=== PATIENT | female | born 1950 | race Caucasian/White ===

== ENCOUNTER 2018-11-21 09:30 | Emergency (ER) | payer MEDICARE ==
[2018-11-21 10:06] VITALS: BP 146/70
--- NOTE | 2018-11-21 10:25 | UC ---
Back Pain HPI - HPI Summary HPI Summary: 68-year-old female who lifted a bag of garbage yesterday and strained her right lower back. The daughter states she's also been having some nausea for one or 2 days but the back pain has caused that to worsen. There is one family member who has the "stomach bug". The patient has not had any vomiting. The patient states "I'm not drinking enough water" and she is urinating less than normal. She denies any burning on urination. Patient has a history of a stroke one year ago affecting her left side. - History of Current Complaint Chief Complaint: UCBackPain Stated Complaint: BACK PAIN Time Seen by Provider: 11/21/18 10:07 Hx Obtained From: Patient, Family/Electrician Supervisor ?: No Onset/Duration: Sudden Onset Timing: Constant Severity Initially: Moderate Severity Currently: Moderate Pain Intensity: 8 Character: Dull, Aching, Spasmodic Aggravating Factor(s): Movement, Lifting, Bending Alleviating Factor(s): Nothing Associated Signs And Symptoms: Negative: Weakness, Numbness, Tingling, Abdominal Pain, Flank Pain, Bladder Incontinence, Bowel Incontinence - Allergies/Home Medications Allergies/Adverse Reactions: Allergies Allergy/AdvReac Type Severity Reaction Status Date / Time No Known Allergies Allergy Verified 11/21/18 10:06 Home Medications: Home Medications Ascorbic Acid TAB* [Vitamin C TAB*] 500 mg PO DAILY 11/21/18 [History Confirmed 11/21/18] Aspirin 81 mg CHEW TAB* [Aspirin Low Dose TAB*] 81 mg PO DAILY 11/21/18 [ History Confirmed 11/21/18] Atorvastatin* [Lipitor*] 80 mg PO DAILY 11/21/18 [History Confirmed 11/21/18] FLUoxetine CAP* [PROzac CAP*] 20 mg PO DAILY 11/21/18 [History Confirmed ] Lisinopril TAB* [Prinivil TAB*] 2.5 mg PO DAILY 11/21/18 [History Confirmed ] metFORMIN* [Glucophage 1000 MG TAB *] 750 mg PO DAILY 11/21/18 [History Confirmed 11/21/18] PMH/Surg Hx/FS Hx/Imm Hx Previously Healthy: Yes Endocrine History: Diabetes Cardiovascular History: Hypertension Neurological History: CVA - CVA one year ago. - Surgical History Surgical History: Yes Surgery Procedure, Year, and Place: tonsilectomy - Family History Known Family History: Positive: Non-Contributory - Social History Occupation: Retired Alcohol Use: None Substance Use Type: None Smoking Status (MU): Former Smoker When Did the Patient Quit Smoking/Using Tobacco: 2017 Review of Systems All Other Systems Reviewed And Are Negative: Yes Genitourinary: Positive: Other - Decreased urination with past 24 hours to which patient attributes "I'm not drinking enough water". Musculoskeletal: Positive: Other: - Pain right lower back after lifting a bag of garbage yesterday afternoon. Is Patient Immunocompromised?: No Physical Exam Triage Information Reviewed: Yes Appearance: Well-Appearing, Well-Nourished, Pain Distress Vital Signs: Initial Vital Signs Temp 97.9 F 11/21/18 10:00 Pulse 76 11/21/18 10:00 Resp 20 11/21/18 10:00 BP 146/70 11/21/18 10:00 Pulse Ox 98 11/21/18 10:00 Vital Signs Reviewed: Yes Respiratory: Positive: Lungs clear, Normal breath sounds, No respiratory distress, No accessory muscle use Cardiovascular: Positive: RRR, No Murmur, Pulses Normal, Brisk Capillary Refill Abdomen Description: Positive: Nontender, No Organomegaly, Soft. Negative: CVA Tenderness (R), CVA Tenderness (L), Distended, Guarding, Hepatomegaly, Splenomegaly Bowel Sounds: Positive: Present Musculoskeletal: Positive: Strength Intact, ROM Intact, Other: - Pain on palpation to the right lower back paraspinal muscle area, spine is nontender. Neurological: Positive: Alert, Muscle Tone Normal Psychological Exam: Normal Skin Exam: Normal Back Pain Course/Dx - Course Course Of Treatment: Urinalysis: Positive for 2+ leukocytes I'm going to treat the patient for urinary tract infection with Macrobid 100 mg by mouth twice a day 7 days. Definite follow-up in the emergency room if she develops any fever, chills, increased back pain or inability to keep medicine down area and she was given a prescription for Zofran. The patient prefers only to continue Tylenol at home for her back pain because she is unable to tolerate ibuprofen and she refuses any muscle relaxant. - Differential Dx/Diagnosis Provider Diagnosis: Low back strain, UTI (urinary tract infection) Discharge ED - Sign-Out/Discharge Documenting (check all that apply): Patient Departure All imaging exams completed and their final reports reviewed: No Studies - Discharge Plan Condition: Fair Disposition: HOME Prescriptions: Nitrofurantoin Monohyd/M-Cryst [Macrobid 100 mg Capsule] 100 mg PO BID 7 Days # 14 cap Patient Education Materials: Urinary Tract Infection in Older Adults (ED) Referrals: Franklin Colunga MD [Primary Care Provider] - Additional Instructions: Increase fluids, follow-up with your primary care provider for recheck of urine in a proximally 10 days. Go to the emergency room if you develop fever, chills , vomiting and unable keep the medication down. Apply heat to the sore area or ice, whichever feels good. Continue to take Tylenol every 4 hours for pain as needed. Avoid movements that cause pain. - Billing Disposition and Condition Condition: FAIR Disposition: Home
[2018-11-21] MEDS ORDERED: Ondansetron TAB* 4 MG PO ONE (10:31)
[2018-11-21] MEDS ORDERED: Ondansetron ODT TAB* 4 MG PO ONE (10:36)
--- NOTE | 2018-11-22 09:12 | UC ---
Course/Dx - Diagnoses Provider Diagnoses: Low back strain, UTI (urinary tract infection) Discharge ED - Sign-Out/Discharge Documenting (check all that apply): Post-Discharge Follow Up - I meant to order Zofran for pt yesterday, but the RX did not go through, so ordered today. All imaging exams completed and their final reports reviewed: No Studies - Discharge Plan Condition: Fair Disposition: HOME Prescriptions: Nitrofurantoin Monohyd/M-Cryst [Macrobid 100 mg Capsule] 100 mg PO BID 7 Days # 14 cap Ondansetron TAB* [Zofran 4 MG Tab*] 4 mg PO Q6H PRN #10 tab PRN Reason: Nausea Patient Education Materials: Urinary Tract Infection in Older Adults (ED) Referrals: Franklin Colunga MD [Primary Care Provider] - Additional Instructions: Increase fluids, follow-up with your primary care provider for recheck of urine in a proximally 10 days. Go to the emergency room if you develop fever, chills , vomiting and unable keep the medication down. Apply heat to the sore area or ice, whichever feels good. Continue to take Tylenol every 4 hours for pain as needed. Avoid movements that cause pain. - Billing Disposition and Condition Condition: FAIR Disposition: Home
--- NOTE | 2018-11-23 07:15 | UC ---
- Progress Note Progress Note: Please advised patient that urine culture showed no growth. She can discontinue use of macrobid. (Seen for low back strain, had white cells in urine.). Course/Dx - Diagnoses Provider Diagnoses: Low back strain, UTI (urinary tract infection) Discharge ED - Sign-Out/Discharge Documenting (check all that apply): Patient Departure All imaging exams completed and their final reports reviewed: No Studies - Discharge Plan Condition: Fair Disposition: HOME Prescriptions: Nitrofurantoin Monohyd/M-Cryst [Macrobid 100 mg Capsule] 100 mg PO BID 7 Days # 14 cap Ondansetron TAB* [Zofran 4 MG Tab*] 4 mg PO Q6H PRN #10 tab PRN Reason: Nausea Patient Education Materials: Urinary Tract Infection in Older Adults (ED) Referrals: Franklin Colunga MD [Primary Care Provider] - Additional Instructions: Increase fluids, follow-up with your primary care provider for recheck of urine in a proximally 10 days. Go to the emergency room if you develop fever, chills , vomiting and unable keep the medication down. Apply heat to the sore area or ice, whichever feels good. Continue to take Tylenol every 4 hours for pain as needed. Avoid movements that cause pain. - Billing Disposition and Condition Condition: FAIR Disposition: Home
== END 2018-11-21 11:19 | disposition home or self-care (01) ==
LOC: UCCORT 09:30
DX: S39.012A Strain of muscle, fascia and tendon of lower back, initial encounter (principal); X50.0XXA Overexertion from strenuous movement or load, initial encounter; Y92.9 Unspecified place or not applicable; N39.0 Urinary tract infection, site not specified; E11.9 Type 2 diabetes mellitus without complications; Z79.84 Long term (current) use of oral hypoglycemic drugs; I10 Essential (primary) hypertension; Z86.73 Personal history of transient ischemic attack (TIA), and cerebral infarction without residual deficits; Z79.82 Long term (current) use of aspirin; Z87.891 Personal history of nicotine dependence
CPT/HCPCS: 81003; 87086; 99212; A9270-GY; G0463